=== PATIENT | female | born 1935 | race Caucasian/White ===

== ENCOUNTER → 2017-03-12 | Outpatient (CLI) | payer BC ==
[~2017-03-12] MED LIST: ATOR10TA88 PO; CALCIUM + D PO; MULT-506 PO; OMEG10007 PO
--- NOTE | 2017-03-12 11:29 | DIAGNOSTIC IMAGING REPORT ---
LEFT THIRD FINGER 3 VIEWS CLINICAL HISTORY: Third finger pain. FINDINGS: 3 views of the left third finger are obtained. No prior studies are available for comparison at the time of dictation. The skeletal structures are osteopenic. No fracture is seen. 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 Minimal arthritic change is seen at the third proximal interphalangeal joint. Soft tissue swelling is suggested in the distal finger. IMPRESSION: Osteopenia and arthritic change as above. No fracture is seen. Electronically signed by: Abiel Shaikh M.D. 03/12/2017 11:28 AM Dictated Date/Time: 03/12/2017 11:19 AM
== END | disposition home or self-care (01) ==
LOC: C.RAD1850 10:59
PROVIDERS: ATTEND Family Medicine
DX: M20.009 Unspecified deformity of unspecified finger(s) (principal); M85.842 Other specified disorders of bone density and structure, left hand

== ENCOUNTER → 2017-07-01 | Outpatient (CLI) | payer BC ==
--- NOTE | 2017-07-02 07:36 | MAMMOGRAPHY REPORT ---
BILATERAL DIGITAL SCREENING MAMMOGRAM WITH CAD: 07/01/2017 CLINICAL HISTORY: Routine screening. Patient has no complaints. TECHNIQUE: Bilateral CC, MLO and repeat right MLO views were obtained. Current study was also evalu ated with a Computer Aided Detection (CAD) system. COMPARISON: Comparison is made to exams dated: 06/29/2016 mammogram, 06/27/2015 mammogram, 06/24/2014 mammogram, 06/23/2013 mammogram, 06/20/2012 mammogram, and 06/19/2011 mammogram - [facility]. BREAST COMPOSITION: There are scattered areas of fibroglandular density in both breasts. FINDINGS: There are mild vascular calcifications in both breasts. There are scattered benign coarse calcifications bilaterally as well. Stable focal asymmetry in the 12:00 posterior left breast. No s uspicious mass, architectural distortion or cluster of new, suspicious microcalcifications are identi fied. IMPRESSION: ACR BI-RADS CATEGORY 2: BENIGN There is no mammographic evidence of malignancy. A 1 year screening mammogram is recommended. The pa tient will receive written notification of the results. Approximately 10% of breast cancers are not detected with mammography. A negative mammographic report should not delay biopsy if a clinically suggestive mass is present. Janette Rojas M.D. ay/:07/01/2017 15:14:36 Pleater Hand: Josi Gordon, [facility] letter sent: Normal 1/2 BI-RADS Code: ACR BI-RADS Category 2: Benign
== END ==
LOC: C.MAMM 10:15
PROVIDERS: ATTEND Family Medicine
DX: Z12.31 Encounter for screening mammogram for malignant neoplasm of breast (principal)

== ENCOUNTER → 2017-09-02 | Outpatient (CLI) | payer BC ==
[~2017-09-02] MED LIST changes: +ATOR10TA82 PO; -ATOR10TA88 PO
== END | disposition home or self-care (01) ==
LOC: C.MAMM 15:34
PROVIDERS: ATTEND Family Medicine
DX: M85.851 Other specified disorders of bone density and structure, right thigh (principal); M85.852 Other specified disorders of bone density and structure, left thigh